=== PATIENT | female | born 1975 | race Caucasian/White ===

== ENCOUNTER 2017-01-03 19:38 | Emergency (ER) | payer OTHER ==
[2017-01-03] MEDS ORDERED: Sodium Chloride 0.9% 1,000 ML IV ONE (19:57)
--- NOTE | 2017-01-03 20:02 | EDM.PDOC ---
ED HPI GENERAL MEDICAL PROBLEM - General Chief Complaint: Abdominal Pain Stated Complaint: STOMACH, [id number] Time Seen by Provider: 01/03/17 19:57 Source of Information: Reports: Patient History Limitations: Reports: No Limitations - History of Present Illness INITIAL COMMENTS - FREE TEXT/NARRATIVE: c/o LUQ pain after eating ham-cheese sandwich mac salad, it subsided mostly then tonight thought ice cream might help but got worse. Left Upper Abdomen Pain Score (Numeric/FACES): 5 - Related Data Allergies Allergy/AdvReac Type Severity Reaction Status Date / Time No Known Allergies Allergy Verified 01/03/17 19:45 Home Meds: Home Meds Lactulose [Lactulose] 10 gm PO DAILY 01/03/17 [History] Past Medical History Other Gastrointestinal History: gastroporisis Neurological History: Reports: Other (See Below) Other Neuro History: Chair malformation Social & Family History - Tobacco Use Smoking Status *Q: Current Every Day Smoker Years of Tobacco use: 17 Packs/Tins Daily: 0.5 Second Hand Smoke Exposure: Yes - Recreational Drug Use Recreational Drug Use: No ED ROS GENERAL - Review of Systems Review Of Systems: ROS reveals no pertinent complaints other than HPI. ED EXAM, GI/ABD - Physical Exam Exam: See Below Exam Limited By: No Limitations General Appearance: Alert, WD/WN, Mild Distress, Other (discomfort) Ears: Hearing Grossly Normal Throat/Mouth: Normal Voice, No Airway Compromise Head: Atraumatic Neck: Non-Tender, Full Range of Motion Respiratory/Chest: No Respiratory Distress Cardiovascular: Regular Rate, Rhythm GI/Abdominal Exam: Tender, Abnormal Bowel Sounds, Other (mild LUQ discomfort BS hyper). No: Guarding, Rigid, Rebound Neurological: Alert, Oriented, Normal Cognition, Normal Gait, No Motor/Sensory Deficits Psychiatric: Normal Affect, Normal Mood Skin Exam: Warm, Dry, Normal Color Lymphatic: No Adenopathy Course - Vital Signs Last Recorded V/S: Last Vital Signs Temp 36.9 C 01/03/17 19:41 Pulse 84 01/03/17 19:41 Resp 18 01/03/17 19:41 BP 115/52 L 01/03/17 19:41 Pulse Ox 100 01/03/17 19:41 - Orders/Labs/Meds Orders: Active Orders 24 hr Category Date Time Status Sodium Chloride 0.9% [Normal Saline] 1,000 ml Med 01/03/17 19:57 Active IV .BOLUS Medication Orders Sodium Chloride (Normal Saline) 1,000 mls @ 500 mls/hr IV .BOLUS ONE Stop: 01/03/17 21:56 Last Admin: 01/03/17 20:07 Dose: 500 mls/hr Labs: Laboratory Tests 01/03/17 01/03/17 Range/Units 20:05 20:05 WBC 10.5 H (5.0-10.0) 10^3/uL RBC 4.65 (4.2-5.4) 10^6/uL Hgb 14.0 (12.0-16.0) g/dL Hct 42.3 (37.0-47.0) % MCV 91.0 (80-100) fL MCH 30.1 (27.0-34.0) pg MCHC 33.1 (33.0-35.0) g/dL Plt Count 180 (150-450) 10^3/uL Neut % (Auto) 66.5 (42.2-75.2) % Lymph % (Auto) 20.2 L (20.5-50.1) % Beadle % (Auto) 11.0 H (2-8) % Eos % (Auto) 2.0 (1.0-3.0) % Baso % (Auto) 0.3 (0.0-1.0) % Sodium 140 (135-145) mmol/L Potassium 3.9 (3.6-5.0) mmol/L Chloride 103 (101-111) mmol/L Carbon Dioxide 27.0 (21.0-31.0) mmol/L Anion Gap 13.9 BUN 12 (7-18) mg/dL Creatinine 0.8 (0.6-1.3) mg/dL Est Cr Clr Drug Dosing 91.94 mL/min Estimated GFR (MDRD) > 60 BUN/Creatinine Ratio 15.00 Glucose 85 (74-105) mg/dL Calcium 10.0 (8.4-10.2) mg/dl Total Bilirubin 0.5 (0.2-1.0) mg/dL AST 17 (10-42) IU/L ALT 13 (10-60) IU/L Alkaline Phosphatase 45 (42-121) IU/L Total Protein 7.6 (6.7-8.2) g/dl Albumin 4.4 (3.2-5.5) g/dl Globulin 3.2 Albumin/Globulin Ratio 1.38 Amylase 45 (28-100) U/L Lipase 29 (22-51) U/L HCG, Qual Negative Meds: Medications Generic Name Dose Route Start Last Admin Trade Name Jhonatan PRN Reason Stop Dose Admin Sodium Chloride 1,000 mls @ 500 mls/hr 01/03/17 19:57 01/03/17 20:07 Normal Saline IV 01/03/17 21:56 500 mls/hr .BOLUS ONE Administration - Re-Assessments/Exams Free Text/Narrative Re-Assessment/Exam: 01/03/17 20:51 re-exam; no c/o presently, results discussed with pt & spouse. Departure - Departure Time of Disposition: 20:52 Disposition: Home, Self-Care 01 Condition: Good Clinical Impression: Abdominal pain Qualifiers: Abdominal location: left upper quadrant Qualified Code(s): R10.12 - Left upper quadrant pain - Discharge Information Instructions: Cholelithiasis, [id number] Forms: ED Department Discharge Additional Instructions: 1) avoid fatty, oily, fried spicy foods 2) see family doctor Friday per appointment for gall stone issues. 3) recheck if there is any change or concern - My Orders Last 24 Hours: My Active Orders 01/03/17 19:57 Sodium Chloride 0.9% [Normal Saline] 1,000 ml IV .BOLUS - Assessment/Plan Last 24 Hours: My Active Orders 01/03/17 19:57 Sodium Chloride 0.9% [Normal Saline] 1,000 ml IV .BOLUS
[2017-01-03 20:31] LABS: CHLORIDE,CL 103 mmol/L (101-111); SODIUM,NA 140 mmol/L (135-145)
== END 2017-01-03 20:59 | disposition home or self-care (01) ==
LOC: DL.ED 19:38
DX: R10.12 Left upper quadrant pain (principal); F17.210 Nicotine dependence, cigarettes, uncomplicated
CPT/HCPCS: 36415; 80053; 82150; 83690; 84703; 85025; 96360; 99284; J7030

== ENCOUNTER 2017-01-15 06:36 | Day surgery (SDC) | payer OTHER ==
[~2017-01-15 06:36] MED LIST: Dextrose 5%-0.45% NaCl 1,000 ML IV SCH; Midazolam 1 MG/ML 2 ML SDV ONE; Sodium Chloride 0.9% 10 ML Syringe FLUSH PRN; fentaNYL 100 MCG/2 ML SDV ONE
[2017-01-15] MEDS ORDERED: fentaNYL 100 MCG/2 ML SDV IV ONE ×4 (06:37→07:16)
[2017-01-15] MEDS ORDERED: Midazolam 1 MG/ML 2 ML SDV IV ONE ×7 (06:37→07:09)
[2017-01-15] MEDS ORDERED: Sodium Chloride 0.9% 1,000 ML IV SCH (07:30)
--- NOTE | 2017-01-15 11:11 | OR ---
DATE: 01/15/2017 PROCEDURE: Total colonoscopy. INSTRUMENT USED: PCF-H180 AL video colonoscope. PREMEDICATIONS: Fentanyl 150 mcg intravenous, Versed 4 mg intravenous. The procedure was done under pulse oximetry, BP recording, and lunchroom monitor. INDICATION: The patient with progressive constipation, unexplained, and not responsive to medical measures. Colonoscopy examination is done for detection of any polypoid lesions and removal, endoscopic hemostasis therapy if needed. DESCRIPTION OF PROCEDURE: Initial rectal exam showed external hemorrhoidal tags. Rigid anoscopy showed small internal hemorrhoids without bleeding from them. The colonoscope was passed with relative ease up to the ileocecal area. Photographs were taken of the normal-appearing cecum identified by landmarks of appendiceal orifice and double-bulged ileocecal folds. The colon was found to be tortuous, long, and redundant. No bleeding was noted from any of the visualized areas at the commencement of the examination. No stricture. No vascular ectasia. No large isolated ulcerations seen. No evidence of diffuse inflammatory bowel disease in the form of friability, contact bleeding, or ulcerations. No polyp or tumor mass identified. Probing the proximal sides of folds and flexures, using adequate distention and clearing up the stool material, withdrawal of the scope was made. Cecum to rectum time over 6 minutes. No bleeding was noted from any of the visualized areas at the completion of the examination. IMPRESSION: External and internal hemorrhoids. The patient tolerated the procedure well. [facility] /[id number]
== END 2017-01-15 09:33 | disposition home or self-care (01) ==
LOC: DL.ENDO 06:36
PROVIDERS: ATTEND Internal Medicine Gastroenterology
DX: K64.8 Other hemorrhoids (principal); K64.4 Residual hemorrhoidal skin tags; F41.1 Generalized anxiety disorder; F32.9 Major depressive disorder, single episode, unspecified; F17.210 Nicotine dependence, cigarettes, uncomplicated
CPT/HCPCS: 45378; J2250; J3010; J7030; J7042

== ENCOUNTER 2017-10-20 08:47 | Emergency (ER) | payer OTHER ==
[2017-10-20] MEDS ORDERED: Ketorolac 30 MG/ML SDV IVPUSH ONE (09:19)
[2017-10-20] MEDS ORDERED: Sodium Chloride 0.9% 10 ML Syringe FLUSH PRN (09:19)
--- NOTE | 2017-10-20 09:34 | EDM.PDOC ---
ED HPI GENERAL MEDICAL PROBLEM - General Chief Complaint: Back Pain or Injury Stated Complaint: [id number] DID SOMETHING TO BACK Time Seen by Provider: 10/20/17 09:15 Source of Information: Reports: Patient History Limitations: Reports: No Limitations - History of Present Illness INITIAL COMMENTS - FREE TEXT/NARRATIVE: This 42 yo female patient reports to the ED with lower back pain with radiating pain into her right leg. The patient also reports some radiating pain into her left leg. The patient reports difficulties changing positions due to increased pain. The patient reports she noticed increased pain after using the Weedeater. The patient has tried ibuprofen with little to no symptom relief. The patient reports no history of lower back pain. 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 Bilateral Lower Back Pain Score (Numeric/FACES): 10 - Related Data Allergies Allergy/AdvReac Type Severity Reaction Status Date / Time No Known Allergies Allergy Verified 01/15/17 06:48 Home Meds: Home Meds buPROPion [Wellbutrin SR] 150 mg PO DAILY 10/20/17 [History] Past Medical History Cardiovascular History: Reports: None Gastrointestinal History: Reports: Hemorrhoids Other Gastrointestinal History: 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: Musculoskeletal History: Reports: Arthritis Neurological History: Reports: Migraines Other Neuro History: Chair malformation Psychiatric History: Reports: Addiction, Depression - Infectious Disease History Infectious Disease History: Reports: Chicken Pox - Past Surgical History GI Surgical History: Reports: None, EGD Other Female Surgeries/Procedures: CERVICAL RADICULOPATHY Social & Family History - Family History Family Medical History: Noncontributory - Tobacco Use Smoking Status *Q: Current Every Day Smoker Years of Tobacco use: 20 Packs/Tins Daily: 1 - Caffeine Use Caffeine Use: Reports: Soda - Recreational Drug Use Recreational Drug Use: No ED ROS GENERAL - Review of Systems Review Of Systems: ROS reveals no pertinent complaints other than HPI. ED EXAM,LOWER BACK PAIN/INJURY - Physical Exam Exam: See Below Exam Limited By: No Limitations General Appearance: Alert, WD/WN, Moderate Distress Eye Exam: Bilateral Eye: EOMI, Normal Inspection, PERRL Ears: Normal External Exam, Normal Canal, Hearing Grossly Normal, Normal TMs Nose: Normal Inspection, Normal Mucosa, No Blood Throat/Mouth: Normal Inspection, Normal Lips, Normal Teeth, Normal Gums, Normal Oropharynx, Normal Voice, No Airway Compromise Head: Atraumatic, Normocephalic Neck: Normal Inspection, Supple, Non-Tender, Full Range of Motion Respiratory/Chest: No Respiratory Distress, Lungs Clear, Normal Breath Sounds, No Accessory Muscle Use, Chest Non-Tender Cardiovascular: Normal Peripheral Pulses, Regular Rate, Rhythm, No Edema, No Gallop, No JVD, No Murmur, No Rub GI/Abdominal: Normal Bowel Sounds, Soft, Non-Tender, No Organomegaly, No Distention, No Abnormal Bruit, No Mass (Female) Exam: Deferred Rectal (Female) Exam: Deferred Back Exam: Paraspinal Tenderness, Vertebral Tenderness (lumbar spine - sacrum) Extremities: Normal Inspection, No Pedal Edema, Normal Capillary Refill Neurological: Alert, Normal Mood/Affect, Normal Dorsiflexion, Normal Plantar Flexion, Normal Gait, Straight Leg Raise (R) (pain with leg raise), Difficulty Walking (due to pain and weakness) Psychiatric: Normal Affect, Normal Mood Skin Exam: Warm, Dry, Intact, Normal Color, No Rash Lymphatic: No Adenopathy Course - Vital Signs Last Recorded V/S: Last Vital Signs Temp 36.9 C 10/20/17 08:56 Pulse 81 10/20/17 08:56 Resp 22 H 10/20/17 08:56 BP 109/68 10/20/17 08:56 Pulse Ox 100 10/20/17 08:56 - Orders/Labs/Meds Orders: Active Orders 24 hr Category Date Time Status Sodium Chloride 0.9% [Saline Flush] Med 10/20/17 09:19 Active 10 ml FLUSH ASDIRECTED PRN Saline Lock Insert [OM.PC] Routine Oth 10/20/17 09:19 Ordered Medication Orders Sodium Chloride (Saline Flush) 10 ml FLUSH ASDIRECTED PRN PRN Reason: Keep Vein Open Last Admin: 10/20/17 09:32 Dose: 10 ml Meds: Medications Generic Name Dose Route Start Last Admin Trade Name Freq PRN Reason Stop Dose Admin Sodium Chloride 10 ml 10/20/17 09:19 10/20/17 09:32 Saline Flush FLUSH 10 ml ASDIRECTED PRN Administration Keep Vein Open Discontinued Medications Generic Name Dose Route Start Last Admin Trade Name Freq PRN Reason Stop Dose Admin Hydrocodone Bitart/Acetaminophen 1 tab 10/20/17 10:43 10/20/17 10:51 [place] 325-10 Mg PO 10/20/17 10:44 1 tab ONETIME ONE Administration Ketorolac Tromethamine 30 mg 10/20/17 09:19 10/20/17 09:30 Toradol IVPUSH 10/20/17 09:20 30 mg ONETIME ONE Administration Departure - Departure Time of Disposition: 10:44 Disposition: Home, Self-Care 01 Condition: Fair Clinical Impression: Bulging lumbar disc Low back pain Qualifiers: Chronicity: acute Back pain laterality: right Sciatica presence: with sciatica Sciatica laterality: sciatica of right side Qualified Code(s): M54.41 - Lumbago with sciatica, right side - Discharge Information *PRESCRIPTION DRUG MONITORING PROGRAM REVIEWED*: No *COPY OF PRESCRIPTION DRUG MONITORING REPORT IN PATIENT MARIA ELENA: No Instructions: Herniated Disk, [id number], Back Pain, Adult, [id number], Pain Medicine Instructions, [id number] Forms: ED Department Discharge Care Plan Goals: The patient was advised of the examination and CT results during the visit. The patient was given an IV dose of Toradol and an oral dose of [place] (10/325) while in the ED. The patient was discharged with a script for Toradol (10 mg) # 20 to take 1 by mouth every 6 hours and [place] (5/325) #18 to take 1 by mouth every 6 hours as needed for pain. The patient was given a copy of the CT results. The patient as agreed to stop her Wellbutrin at this time (she started the medication 3 days ago). The patient should contact her primary care facility for continued evaluation (MRI) and treatment. If the patient has any additional symptoms or concerns, the patient should either return to the emergency department or contact her primary care facility. - My Orders Last 24 Hours: My Active Orders 10/20/17 09:19 Sodium Chloride 0.9% [Saline Flush] 10 ml FLUSH ASDIRECTED PRN Saline Lock Insert [OM.PC] Routine - Assessment/Plan Last 24 Hours: My Active Orders 10/20/17 09:19 Sodium Chloride 0.9% [Saline Flush] 10 ml FLUSH ASDIRECTED PRN Saline Lock Insert [OM.PC] Routine
[2017-10-20] MEDS ORDERED: Acetaminophen/HYDROcodone 325-10 MG Tab PO ONE (10:43)
--- NOTE | 2017-10-20 11:22 | CT ---
CLINICAL HISTORY: 42-year-old 140 pound female smoker with back pain and lower extremity radiculopath y (right >left) "since Friday". SCAN TECHNIQUE: Volume acquisition of data from an emergency unenhanced CT scan of the lower thoracic , entire lumbar spine and sacrum obtained while the patient was lying supine on the Siemens multislic e scanner [place], [place]. All data archived in the PACS system for s torage, reformatting axial/sagittal/coronal planes and study. INTERPRETATION: Abnormal. 1. *Disc herniation midline and paracentrally, on the right, at the lowest L5-S1 level mildly effacin g the thecal sac and encroaching on the right lateral recess. MRI recommended for confirmation diagno sis. 2. No sign of other surgical disc herniation or extruded "free" intracanalicular disc fragment. 3. Homogeneous age-appropriate bone mineral density. No pathologic skeletal lesion, lumbar fracture o r dislocation. 4. No abnormal intervertebral disc space narrowing. Minimal marginal hypertrophic spondylosis.
== END 2017-10-20 11:40 | disposition home or self-care (01) ==
LOC: DL.ED 08:47
DX: M51.16 Intervertebral disc disorders with radiculopathy, lumbar region (principal); F17.210 Nicotine dependence, cigarettes, uncomplicated; Z79.899 Other long term (current) drug therapy
CPT/HCPCS: 72131; 96374; 99283; A9270; J1885; J7050

== ENCOUNTER 2022-09-09 10:53 | Emergency (ER) | payer OTHER ==
[2022-09-09 11:33] LABS: HEMATOCRIT 41.3 % (37.0-47.0); HEMOGLOBIN 13.4 g/dL (12.0-16.0); MEAN CORPUSCULAR HEMOGLOBIN 31.8 pg (27.0-34.0); MEAN CORPUSCULAR HGB CONC 32.4 g/dL (33.0-35.0); MEAN CORPUSCULAR VOLUME 98.1 fL (80-100); PLATELET COUNT,PLT 187 10^3/uL (150-450); RED BLOOD CELL COUNT 4.21 10^6/uL (4.2-5.4); WHITE BLOOD CELL COUNT,WBC 21.5 10^3/uL (5.0-10.0)
[2022-09-09 11:36] LABS: BASOPHILS PERCENT AUTO 0.5 % (0.0-1.0); EOSINOPHILS PERCENT AUTO 0.1 % (1.0-3.0); LYMPHOCYTES PERCENT AUTO 6.7 % (20.5-50.1); NEUTROPHILS PERCENT AUTO 86.7 % (42.2-75.2)
[2022-09-09 11:47] LABS: BAND PERCENT MAN 5 %; LYMPHOCYTES PERCENT MAN 10 % (20-50); MONOCYTES PERCENT MAN 12 % (2-8); NRBC MANUAL 2 /100WBC; SEG NEUTROPHILS PERCENT MAN 73 % (42-75)
[2022-09-09 11:54] LABS: ALBUMIN 3.3 g/dL (3.4-5.0); ANION GAP 11.9 mEq/L (7-13); BILIRUBIN TOTAL 0.2 mg/dL (0.2-1.0); BUN/CREATININE RATIO 9.1 (No establ ref range); CREATININE 0.88 mg/dL (0.55-1.02); EST CRCL DRUG DOSING (CG) 88.09 mL/min; MAGNESIUM 2.3 mg/dL (1.8-2.4); POTASSIUM,K 4.9 mmol/L (3.5-5.1); PROTEIN TOTAL,TP 6.6 g/dL (6.4-8.2)
== END 2022-09-09 12:30 | disposition home or self-care (01) ==
LOC: DL.ED 10:53
DX: G25.3 Myoclonus (principal)
CPT/HCPCS: 36415; 80053; 83735; 85025; 99283; 99284

== ENCOUNTER 2024-09-12 14:24 | Emergency (ER) | payer MEDICARE, OTHER ==
[2024-09-12] MEDS ORDERED: Take Home: Amoxicillin 500 MG, 6 Cap Pack PO ONE (14:33)
== END 2024-09-12 14:44 | disposition home or self-care (01) ==
LOC: DL.ED 14:24
DX: H66.92 Otitis media, unspecified, left ear (principal); Z79.899 Other long term (current) drug therapy
CPT/HCPCS: 99282